=== PATIENT | female | born 1955 | race Hispanic/Latino ===

== ENCOUNTER 2019-03-21 14:28 | Emergency (ER) | payer OTHER ==
--- NOTE | 2019-03-21 16:41 | RAD REPORT ---
EXAM DESCRIPTION: Ribs Right - 03/21/2019 4:11 pm CLINICAL HISTORY: Right-sided rib pain following trauma COMPARISON: None. FINDINGS: No displaced rib fractures present and no nondisplaced rib fracture identifiable. No aggressive rib lesion. No underlying pneumothorax, effusion, infiltrate or pulmonary contusion. IMPRESSION: Negative right rib series.
--- NOTE | 2019-03-21 17:02 | ER ---
Nurse's Notes [facility] Name: Zonia Butcher Age: 63 yrs Sex: Female : 1955 Arrival Date: 03/21/2019 Time: 14:38 Bed 9 Private MD: Diagnosis: Contusion of Rib Presentation: 03/21 14:48 Presenting complaint: Right sided rib cage pain after leaning over metal bed rail 2 hb days ago. Transition of care: patient was not received from another setting of care. Onset of symptoms was March 19, 2019. Risk Assessment: Do you want to hurt yourself or someone else? Patient reports no desire to harm self or others. Initial Sepsis Screen: Does the patient meet any 2 criteria? No. Patient's initial sepsis screen is negative. Does the patient have a suspected source of infection? No. Patient's initial sepsis screen is negative. Care prior to arrival: None. 14:48 Method Of Arrival: Ambulatory hb 14:48 Acuity: SRINIVASAN 4 hb Historical: - Allergies: 14:49 No Known Allergies; hb - Immunization history:: Adult Immunizations unknown. - Social history:: Smoking status: unknown. - Ebola Screening: : No symptoms or risks identified at this time. Screenin:57 Abuse screen: Denies threats or abuse. Denies injuries from another. Nutritional ph screening: No deficits noted. Tuberculosis screening: No symptoms or risk factors identified. Fall Risk None identified. Assessment: 15:56 General: Appears in no apparent distress. comfortable, well groomed, Behavior is calm, ph cooperative, appropriate for age. Pain: Complains of pain in right lateral posterior chest and right lateral anterior chest. Neuro: Level of Consciousness is awake, alert, obeys commands, Oriented to person, place, time, situation. Cardiovascular: Capillary refill < 3 seconds in bilateral fingers Patient's skin is warm and dry. Respiratory: Reports pain with respiration Airway is patent Respiratory effort is even, unlabored, Respiratory pattern is regular, symmetrical, Denies shortness of breath. Derm: Skin is intact, is healthy with good turgor, Skin is pink, warm \T\ dry. 16:45 Reassessment: Patient appears in no apparent distress at this time. No changes from previously documented assessment. Patient and/or family updated on plan of care and expected duration. Pain level reassessed. Patient is alert, oriented x 3, equal unlabored respirations, skin warm/dry/pink. Vital Signs: 14:49 BP 158 / 79; Pulse 84; Resp 16; Temp 98.2; Pulse Ox 100% on R/A; Weight 108.86 kg; hb Height 5 ft. 4 in. (162.56 cm); Pain 9/10; 14:49 Body Mass Index 41.20 (108.86 kg, 162.56 cm) hb ED Course: 14:38 Patient arrived in ED. mr 14:49 Triage completed. hb 14:49 Arm band placed on. hb 15:11 Arturo Copeland PA is PHCP. [facility] 15:11 Jono Carnes MD is Attending Physician. caesar 15:56 Kanwal Garg, RN is Primary Nurse. ph 15:57 Patient has correct armband on for positive identification. Bed in low position. ph 15:57 No provider procedures requiring assistance completed. Patient did not have IV access ph during this emergency room visit. 16:06 Ribs Right XRAY In Process Unspecified. EDMS Administered Medications: No medications were administered Outcome: 17:01 Discharge ordered by . [facility] 17:09 Discharged to home ambulatory. hb 17:09 Condition: stable 17:09 Discharge instructions given to patient, Instructed on discharge instructions, follow up and referral plans. medication usage, Incentive spirometer Demonstrated understanding of instructions, follow-up care, medications, incentive spirometer Prescriptions given X 1. 17:10 Patient left the ED. hb Signatures: Dispatcher [employer] EDMS Arturo Copeland PA PA jmm Rivera, Mary mr Kanwal Garg, ILEANA RN Angela Araiza RN RN hb
--- NOTE | 2019-03-21 17:03 | EDPHYS ---
Physician Documentation [facility] Name: Zonia Butcher Age: 63 yrs Sex: Female : 1955 Arrival Date: 03/21/2019 Time: 14:38 Bed 9 Private MD: ED Physician Jono Carnes HPI: 03/21 15:31 This 63 yrs old Female presents to ER via Ambulatory with complaints of Rib jmm pain. 15:31 The patient or guardian reports chest pain that is located primarily in the anterior jmm chest wall. The pain does not radiate. The chest pain is described as sharp. Duration: The patient or guardian reports a single episode, that is still ongoing. 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 This occurred 2 days ago and the patient states pain has increased. . Historical: - Allergies: 14:49 No Known Allergies; hb - Immunization history:: Adult Immunizations unknown. - Social history:: Smoking status: unknown. - Ebola Screening: : No symptoms or risks identified at this time. ROS: 15:31 Constitutional: Negative for fever, chills, and weight loss, Respiratory: Negative for jmm shortness of breath, cough, wheezing, and pleuritic chest pain. 15:31 Cardiovascular: Positive for chest pain, with cough. 15:31 All other systems are negative. Exam: 15:31 Constitutional: This is a well developed, well nourished patient who is awake, alert, jmm and in no acute distress. Head/Face: atraumatic. Eyes: EOMI, no conjunctival erythema appreciated ENT: Moist Mucus Membranes Neck: Trachea midline, Supple 15:31 Cardiovascular: Regular rate and rhythm. No edema appreciated Respiratory: Normal respirations, no respiratory distress appreciated Abdomen/GI: Non distended, soft Back: Normal ROM Skin: General appearance color normal MS/ Extremity: Moves all extremities, no obvious deformities appreciated, no edema noted to the lower extremities Neuro: Awake and alert, normal gait Psych: Behavior is normal, Mood is normal, Patient is cooperative and pleasant 15:31 Chest/axilla: Inspection: normal, Palpation: tenderness, that is moderate, of the right lateral anterior chest, that totally reproduces the patient's complaints. Vital Signs: 14:49 BP 158 / 79; Pulse 84; Resp 16; Temp 98.2; Pulse Ox 100% on R/A; Weight 108.86 kg; hb Height 5 ft. 4 in. (162.56 cm); Pain 9/10; 14:49 Body Mass Index 41.20 (108.86 kg, 162.56 cm) hb MDM: 15:31 Patient medically screened. [facility] 16:57 Data reviewed: vital signs, nurses notes. Counseling: I had a detailed discussion with [facility] the patient and/or guardian regarding: the historical points, exam findings, and any diagnostic results supporting the discharge/admit diagnosis, the need for outpatient follow up, to return to the emergency department if symptoms worsen or persist or if there are any questions or concerns that arise at home. 16:57 ED course: Patient given IS along with education and return precautions. Patient [facility] understood and agrees with the plan of care. . 03/21 15:35 Order name: Ribs Right XRAY; Complete Time: 16:46 [facility] 03/21 16:19 Order name: INCENTIVE SPIROMETRY [facility] Administered Medications: No medications were administered Disposition: 03/22 08:18 Co-signature as Attending Physician, Jono Carnes MD I agree with the assessment and kdr plan of care. Disposition: 03/21/19 17:01 Discharged to Home. Impression: Contusion of Rib. - Condition is Stable. - Discharge Instructions: Rib Contusion, Incentive Spirometer. - Prescriptions for Ultracet 37.5- 325 mg Oral Tablet - take 1 tablet by ORAL route every 6 hours - for up to 5 days; do not exceed 8 tablets per day.; 12 tablet. - Medication Reconciliation Form, Thank You Letter, Antibiotic Education, Prescription Opioid Use form. - Follow up: Private Physician; When: 2 - 3 days; Reason: Recheck today's complaints, Continuance of care, Re-evaluation by your physician. Signatures: Dispatcher [employer] EDMS Jono Carnes MD MD kdr Mickail, Joel, PA PA [facility] Kanwal Garg RN RN Angela Veloz RN RN hb Corrections: (The following items were deleted from the chart) 03/21 17:10 17:01 03/21/2019 17:01 Discharged to Home. Impression: Contusion of Rib. Condition is hb Stable. Forms are Medication Reconciliation Form, Thank You Letter, Antibiotic Education, Prescription Opioid Use. Follow up: Private Physician; When: 2 - 3 days; Reason: Recheck today's complaints, Continuance of care, Re-evaluation by your physician. kenzie
[2019-03-21 17:32] VITALS: BP 158/79; TEMP 98.2; O2SAT 100
== END 2019-03-21 17:10 | disposition home or self-care (01) ==
LOC: ER 14:28
DX: S20.211A Contusion of right front wall of thorax, initial encounter (principal); W22.8XXA Striking against or struck by other objects, initial encounter; Y93.F9 Activity, other caregiving; Y92.9 Unspecified place or not applicable; Y99.8 Other external cause status
CPT/HCPCS: 99283

== ENCOUNTER 2020-12-04 05:35 | Day surgery (SDC) | payer OTHER, BC ==
[2020-11-30 17:05] LABS: Basophils % 0.6 % (0-1.3); Hematocrit 40.9 % (36.0-45.0); Lymphocytes % 20.7 % (15.3-44.8); MPV 9.4 fL (7.6-11.3); RBC Red Blood Cell Count 4.25 M/uL (3.86-4.86)
[2020-11-30 17:16] LABS: Potassium 4.5 mmol/L (3.5-5.1)
[2020-11-30 17:23] LABS: Protime INR 1.15
--- NOTE | 2020-11-30 17:27 | RAD REPORT ---
EXAM DESCRIPTION: Uzma Mancilla (2 Views)11/30/2020 5:10 pm CLINICAL HISTORY: Preop for shoulder surgery COMPARISON: 2019 FINDINGS: The lungs appear clear of acute infiltrate. The heart is borderline enlarged IMPRESSION: No acute abnormalities displayed
--- NOTE | 2020-12-01 12:16 | EKG ---
Test Date: 2020-11-30 Test Time: 15:45:28 Fuse Maker: ADONIS MEASUREMENT RESULTS: Intervals: Rate: 70 CO: 128 QRSD: 80 QT: 396 QTc: 427 [place]: P: -3 CO: 128 QRS: 24 T: 13 INTERPRETIVE STATEMENTS: Normal sinus rhythm Low voltage QRS Possible Inferior infarct, age undetermined Abnormal ECG Compared to ECG 03/31/2017 08:31:26 Low QRS voltage now present Myocardial infarct finding still present Electronically Signed On 12-01-20 12:13:29 CDT by Demetrius Garcia
--- NOTE | 2020-12-02 16:14 | EKG ---
Test Date: 2020-12-01 Test Time: 06:44:28 Enlisted Aircrew/Aerial Observer/Gunner: ADONIS MEASUREMENT RESULTS: Intervals: Rate: 81 IN: 250 QRSD: 102 QT: 386 QTc: 448 [place]: P: 94 IN: 250 QRS: 0 T: 68 INTERPRETIVE STATEMENTS: Sinus rhythm with 1st degree AV block Nonspecific ST and T wave abnormality Abnormal ECG Compared to ECG 11/30/2020 15:45:28 First degree AV block now present ST (T wave) deviation now present Myocardial infarct finding no longer present Electronically Signed On 12-02-20 16:07:35 CDT by Demetrius Garcia
[2020-12-04] MEDS ORDERED: NA CHLORIDE 0.9% 1,000 ML ONE ×2 (06:13→08:50)
[2020-12-04] MEDS ORDERED: CEFAZOLIN/SWI 2gm 2 GM/20 ML SYR ONE (06:14)
[2020-12-04] MEDS ORDERED: ROPLVACAINE HCL 40 ML ONE (06:55)
[2020-12-04] MEDS ORDERED: FENTANYL CITR 100 MCG/2 ML ONE (06:55)
[2020-12-04] MEDS ORDERED: MIDAZOLAM HCL 2 MG/2 ML INJ ONE (06:55)
[2020-12-04] MEDS ORDERED: dexAMETHasone 10 MG/ML VIAL ONE (06:55)
[2020-12-04] MEDS ORDERED: NS 0.9% VIAL 10 ML ONE (06:55)
[2020-12-04] MEDS ORDERED: LIDOCAINE 1% MPF 5 ML VIAL ONE (06:55)
[2020-12-04] MEDS ORDERED: EPINEPHRINE/PF 1 MG/ML AMP ONE (07:12)
[2020-12-04] MEDS ORDERED: propofoL 200 MG/20 ML VIAL IV ONE (07:40)
[2020-12-04] MEDS ORDERED: ROCURONIUM 50 MG/5 ML VIAL IV ONE ×2 (07:40→08:59)
[2020-12-04] MEDS ORDERED: LIDOCAINE 2% MPF 5 ML VIAL ONE (07:40)
[2020-12-04] MEDS ORDERED: EPHEDRINE SULF 50 MG/ML VIAL ONE (08:56)
[2020-12-04] MEDS ORDERED: BUPIVACAINE 0.5% PF 10 ML VIAL ONE (10:04)
[2020-12-04] MEDS ORDERED: GLYCOPYRROLATE 0.2 MG/ML SYR ONE (10:05)
[2020-12-04] MEDS ORDERED: NEOSTIGMINE 1 MG/ML -5 ML ONE (10:06)
--- NOTE | 2020-12-04 10:21 | P.BOP ---
Preoperative diagnosis: right shoulder rotator cuff tear, impingement syndrome, AC arthrosis Postoperative diagnosis: same, subscapularis tear Primary procedure: right shoulder arthroscopic rotator cuff repair Secondary procedure: right shoulder arthroscopic subscapularis debridement Other procedure(s): right shoulder subacromial decompression with distal clavicle excision Estimated blood loss: per anesthesia record Specimen: none Findings: see dictation Anesthesia: General Complications: None Implants: 1 - 5.5 mm Arthrex corkscrew, 2- 4.75 Arthrex swivelocks Fluids & blood products: per anesthesia record Transferred to: Recovery Room Condition: Good
--- NOTE | 2020-12-04 11:04 | RAD REPORT ---
EXAM DESCRIPTION: RAD - Shoulder 1 View - 12/04/2020 10:33 am CLINICAL HISTORY: Right shoulder surgery FINDINGS: Postsurgical changes involve the right shoulder. No fracture or dislocation seen.
[2020-12-04] MEDS ORDERED: ONDANSETRON 4 MG/2 ML VIAL ONE (11:16)
[2020-12-04] MEDS ORDERED: HYDROCODONE/APAP 7.5/325 MG TAB ONE (11:51)
[2020-12-04 13:54] VITALS: TEMP 97
[2020-12-04 13:55] VITALS: BP 102/43; O2SAT 96
--- NOTE | 2020-12-05 02:50 | OP ---
Date of Procedure: 12/04/2020 Surgeon: Musa Tee MD Preoperative Diagnoses: 1.Right shoulder rotator cuff tear. 2.Right shoulder bicipital tenosynovitis. 3.Right shoulder impingement syndrome. 4.Right shoulder acromioclavicular joint arthrosis. Postoperative Diagnoses: 1.Right shoulder rotator cuff tear. 2.Right shoulder biceps tendon auto-rupture. 3.Right shoulder subscapularis tear. 4.Right shoulder impingement syndrome. 5.Right shoulder acromioclavicular joint arthrosis. Procedure Performed: 1.Right shoulder arthroscopic rotator cuff repair. 2.Right shoulder arthroscopic subscapularis debridement. 3.Right shoulder arthroscopic subacromial decompression. 4.Right shoulder arthroscopic distal clavicle excision. Anesthesia: General endotracheal. Fluids: Per Anesthesia record. Estimated Blood Loss: 10 cc. Complications: None. Implants: 1.One 5.5 mm Arthrex corkscrew. 2.Two 4.75 mm Arthrex SwiveLock. Indication For Procedure: Zonia is a 65-year-old female, who presented to my clinic with signs and symptoms and MRI findings consistent with right shoulder rotator cuff tear, bicipital tenosynovitis as well as impingement syndrome and AC joint arthrosis. The patient failed conservative treatment me asures and reported pain that interfered with her activities of daily living and I discussed with the patient at length risks and benefits associated with operative and nonoperative treatment. She expr essed understanding and elected to proceed with operative treatment. Description Of Procedure: After informed consent was obtained, the patient was identified in the pre operative holding area. The right upper extremity was marked. The patient was then brought back to the PACU where the patient underwent a right-sided interscalene block performed by Anesthesia. She w as then taken to the operating room, transferred to the operating table in the supine fashion and gasper luke under general endotracheal anesthesia. She was then placed in the beach chair position with her extremities well padded. The right upper extremity was then examined. The patient had full range of motion and no instability noted. The right upper extremity was then prepped and draped in usual abdiaziz rile fashion. A time-out was initiated. The correct patient and procedure confirmed and identified. The patient did receive her preoperative prophylactic antibiotics. A spinal needle was introduced to the glenohumeral joint using the posterior portal position and the shoulder was injected with 30 c c of normal saline to distend the capsule. A stab incision was made posteriorly and a posterior port al was created. The arthroscope was brought in via the posterior portal position. A diagnostic arth roscopy was performed. Under direct visualization, anterior portal and anterior cannula were placed, and a diagnostic arthroscopy was performed. The patient was noted to have a less than 10% tear of t he superior aspect of the subscapularis, which was debrided using an arthroscopic shaver. The patien t was also noted to have an auto-rupture of her biceps tendon. The biceps tendon anchor was then tabatha rided using arthroscopic shaver. There were no significant instability noted to the anterior and pos terior labrum stable to probe. There were no loose bodies within the axillary pouch. There was no s ignificant chondromalacia noted of the humeral head and glenoid surface. The arthroscope was then br ought at the supraspinatus insertion. The patient was noted to have a full-thickness tear of her sup raspinatus. Over the anterior aspect of it, a lateral portal was created using a spinal needle and a stab incision. A trocar was brought into the joint consistent with a full-thickness tear. The grea ter tuberosity was then debrided using an arthroscopic shaver to create a bleeding bony bed and the u ndersurface of rotator cuff tear was then debrided using the arthroscopic shaver. The arthroscope wa s then brought in the subacromial space and subacromial bursectomy was performed. A full-thickness t ear of the supraspinatus was identified. Belkys cannula was then placed. The tear was then reducibl e to the greater tuberosity using the pituitary grasper with no tension. Again, the bursal side of t he rotator cuff tear was then debrided using arthroscopic shaver. A spinal needle was then introduce d just lateral to the acromion and a 5.5 mm anchor was placed just lateral to the articular service f or medial row fixation. It was double loaded. The sutures were passed through the rotator cuff tear in an anterior to posterior fashion and tied in a horizontal mattress fashion. The suture was then placed in a crisscross fashion and 2 lateral row 4.75 mm Arthrex SwiveLock anchors were placed for in creasing the surface area of the repair onto the greater tuberosity. There was overall good reductio n of the rotator cuff tear with overall good alignment. The undersurface of the acromion was then de brided using an arthroscopic radiofrequency ablator and an arthroscopic divya was then used to perform an acromioplasty given some the undersurface spurring of the acromion. The distal clavicle was then identified and a distal clavicle excision was then performed using a radiofrequency ablator and an a rthroscopic divya and there was no abutment of the distal clavicle onto the acromion. The arthroscopi c instruments were then removed without complication and the subcutaneous tissue was approximated usi ng a 2-0 Vicryl and skin was approximated using a 3-0 Monocryl. Sterile dressings were applied. The patient was placed in a shoulder immobilizer, awakened, and transferred to PACU in stable condition. Postoperative Plan: She will be nonweightbearing on her right upper extremity. She will follow the medium rotator cuff repair protocol at 4 weeks postop with Physical Therapy. She will follow up next week in clinic for wound check. CV/MODL Voice ID: [id number] Report ID: [id number]
== END 2020-12-04 12:30 | disposition home or self-care (01) ==
LOC: OR 05:35
PROVIDERS: ATTEND Orthopaedic Surgery Sports Medicine
PROC: 0RNJ4ZZ Release Right Shoulder Joint, Percutaneous Endoscopic Approach (ICD-10-PCS; 2020-12-04)
PROC: 0LQ14ZZ Repair Right Shoulder Tendon, Percutaneous Endoscopic Approach (ICD-10-PCS; 2020-12-04)
PROC: 0RHJ44Z Insertion of Internal Fixation Device into Right Shoulder Joint, Percutaneous Endoscopic Approach (ICD-10-PCS; 2020-12-04)
PROC: 0PB94ZZ Excision of Right Clavicle, Percutaneous Endoscopic Approach (ICD-10-PCS; 2020-12-04)
PROC: 0RBJ4ZZ Excision of Right Shoulder Joint, Percutaneous Endoscopic Approach (ICD-10-PCS; principal; 2020-12-04 07:30)
DX: M75.121 Complete rotator cuff tear or rupture of right shoulder, not specified as traumatic (principal); M65.811 Other synovitis and tenosynovitis, right shoulder; M75.41 Impingement syndrome of right shoulder; M19.011 Primary osteoarthritis, right shoulder; E11.9 Type 2 diabetes mellitus without complications; E66.01 Morbid (severe) obesity due to excess calories; K21.9 Gastro-esophageal reflux disease without esophagitis; Z85.038 Personal history of other malignant neoplasm of large intestine; Z20.822 Contact with and (suspected) exposure to COVID-19
CPT/HCPCS: 93005 ×2; 85025; 80048; 36415; 85610; 82947 ×2; 85730; 71046; 73020; 29823; 29826; 29827; 29824; U0002; J2704; J0171; J2250; J3010; J1100; J2795; J2710; J0690; J7030 ×2; J2405

== ENCOUNTER 2021-02-19 05:46 | Day surgery (SDC) | payer OTHER, BC ==
[2021-02-12 10:15] LABS: Protime INR 1.05
[2021-02-12 10:20] LABS: BUN Blood Urea Nitrogen 23 mg/dL (7-18); Bicarbonate 26 mmol/L (21-32); Glucose Level 134 mg/dL (74-106); Potassium 4.6 mmol/L (3.5-5.1); Sodium Level 138 mmol/L (136-145)
[2021-02-12 10:23] LABS: C-Reactive Protein < 2.90 mg/L (<3.00)
[2021-02-12 10:37] LABS: Absolute Lymphocytes (CBC) 1.7 K/uL (0.7-4.9); Basophils % 0.4 % (0-1.3); Hematocrit 38.6 % (36.0-45.0); Lymphocytes % 18.1 % (15.3-44.8); MPV 9.7 fL (7.6-11.3); RBC Red Blood Cell Count 4.09 M/uL (3.86-4.86)
[2021-02-19] MEDS ORDERED: NA CHLORIDE 0.9% 1,000 ML ONE ×2 (06:12→09:11)
[2021-02-19] MEDS ORDERED: CEFAZOLIN/SWI 2gm 2 GM/20 ML SYR ONE (06:12)
[2021-02-19] MEDS ORDERED: ROPLVACAINE HCL 40 ML ONE (06:56)
[2021-02-19] MEDS ORDERED: EPINEPHRINE/PF 1 MG/ML AMP ONE (07:24)
[2021-02-19] MEDS ORDERED: LIDOCAINE 1% MPF 30 ML VIAL ONE (07:49)
[2021-02-19] MEDS ORDERED: dexAMETHasone 10 MG/ML VIAL ONE (07:49)
[2021-02-19] MEDS ORDERED: propofoL 200 MG/20 ML VIAL IV ONE (07:49)
[2021-02-19] MEDS ORDERED: ROCURONIUM 50 MG/5 ML VIAL IV ONE ×2 (07:49→09:54)
[2021-02-19] MEDS ORDERED: LIDOCAINE 2% MPF 5 ML VIAL ONE (07:49)
[2021-02-19] MEDS ORDERED: MIDAZOLAM HCL 2 MG/2 ML INJ ONE (07:49)
[2021-02-19] MEDS ORDERED: FENTANYL CITR 100 MCG/2 ML ONE ×2 (07:49→11:07)
[2021-02-19] MEDS ORDERED: NS 0.9% VIAL 20 ML ONE (07:49)
--- NOTE | 2021-02-19 10:35 | RAD REPORT ---
EXAM DESCRIPTION: RAD - Shoulder 1 View - 02/19/2021 10:13 am CLINICAL HISTORY: R/O FB LOOSE SCREW FROM RECENT SURG , DONE IN OR COMPARISON: Shoulder 1 View dated 12/04/2020 FINDINGS: No radiopaque foreign body identified in the region of the right shoulder. IMPRESSION: No radiopaque foreign body in the region of the right shoulder.
[2021-02-19] MEDS ORDERED: KETOROLAC 30 MG/ML INJ ONE (11:07)
[2021-02-19] MEDS ORDERED: ONDANSETRON 4 MG/2 ML VIAL ONE (11:09)
[2021-02-19] MEDS ORDERED: GLYCOPYRROLATE 0.2 MG/ML SYR ONE (11:25)
[2021-02-19] MEDS ORDERED: NEOSTIGMINE 1 MG/ML -5 ML ONE (11:25)
--- NOTE | 2021-02-19 11:30 | P.BOP ---
Preoperative diagnosis: right shoulder loose body, right shoulder recurrent rotator cuff tear Postoperative diagnosis: right shoulder arthroscopic rotator cuff repair Primary procedure: right shoulder arthroscopic loose body removal Culinary Instructor: NONE,NONE Specimen: none Findings: see dictation Anesthesia: General Complications: None Implants: 1- 5.5 mm corkscrew, 1- 4.75 mm swivelock Fluids & blood products: per anesthesia record Transferred to: Recovery Room Condition: Good
--- NOTE | 2021-02-19 12:07 | RAD REPORT ---
EXAM DESCRIPTION: RAD - Shoulder 1 View - 02/19/2021 11:51 am CLINICAL HISTORY: S/P RCR, ARTHROSCOPIC REMOVAL OF LOOSE BODY COMPARISON: Shoulder 1 View dated 02/19/2021[place]oulder 1 View dated 02/19/2021; Shoulder Rt Wo Cont dated 02/04/2021 FINDINGS: No right shoulder or dislocation. A small right pleural effusion with underline linear opa cities, likely atelectasis or scarring. No radiopaque foreign body. IMPRESSION: No right shoulder fracture identified. No radiopaque foreign body.
[2021-02-19] MEDS ORDERED: INSULIN -REGULAR HUMAN 50 UNIT/0.5 ML ML ONE (12:25)
[2021-02-19 14:03] VITALS: BP 104/53; TEMP 97.8; O2SAT 98
--- NOTE | 2021-02-19 23:24 | OP ---
Date of Procedure: 02/19/2021 Surgeon: Musa Tee MD Preoperative Diagnoses: 1.Right shoulder loose body. 2.Right shoulder recurrent rotator cuff tear. Postoperative Diagnoses: 1.Right shoulder loose body. 2.Right shoulder recurrent rotator cuff tear. Procedures Performed: 1.Right shoulder arthroscopic rotator cuff repair. 2.Right shoulder arthroscopic removal of loose body. Anesthesia: General endotracheal. Fluids: Per Anesthesia record. Estimated Blood Loss: 5 cc. Complications: None. Implants: 1.One 5.5 mm Arthrex corkscrew. 2.One 4.75 mm Arthrex SwiveLock. Indication For Procedure: Ms. Butcher is a 65-year-old female, who underwent right shoulder rotator cu ff repair approximately 2 months ago. The patient was doing well postoperatively and then had an inc rease in pain. An MRI was ordered at that time, which demonstrated she had 1 of her SwiveLock had ba cked out and was in the subacromial space. The patient was reporting pain with physical therapy as w ell as sleeping. Given her pain and a loose screw, I discussed with the patient arthroscopic removal of loose body as well as possible rotator cuff repair. The patient expressed understanding given he r continued pain and elected to proceed with operative treatment. Description Of Procedure: After informed consent was obtained, the patient was identified in the pre operative holding area. The right lower extremity was marked. The patient was then brought to the P ACU where she underwent a right upper extremity interscalene block performed by Anesthesia. She was then taken back to the operating room, transferred to the operating table in supine fashion, and plac ed under general endotracheal anesthesia. She was placed in the beach chair position with her extrem ities well padded throughout. Right upper extremity was then prepped and draped in usual sterile fas hion. A time-out was initiated. The correct patient and procedure were confirmed and identified. T he patient did receive her preoperative prophylactic antibiotics. A spinal needle was introduced int o the glenohumeral joint via the posterior portal position and the shoulder was injected with 30 cc o f normal saline to distend the capsule. A posterior portal was then created and arthroscope was brou ght in via the posterior portal position into the glenohumeral joint. A diagnostic arthroscopy was p erformed. The patient was noted not to have any loose bodies within the rotator cuff or within the i ntra-articular space. The subscapularis was found to be intact. The anterior and posterior labrum w ere found to be stable to probe as well as intact. Superior labrum was found to be intact. There we re no loose bodies within the axillary pouch. The rotator cuff was then examined. The patient was n oted to have some healing of the anterior aspect of the rotator cuff tear from the prior surgery as w ell as with some mild elevation of the posterior supraspinatus, which was noted on her postoperative MRI, which demonstrated the posterior SwiveLock to be loose within the subacromial space. The arthro scope was then brought into the subacromial space and a subacromial bursectomy was performed. There was overall good healing of anterior rotator cuff repair. The patient was noted to have some loose s utures at the level of the posterior SwiveLock. The loose sutures were then cut and removed using a side cutter and grasper. The rotator cuff tear posteriorly was then debrided using an arthroscopic s haver as it did appear to be elevated off the greater tuberosity. The loose sutures that were remove d did bring out of it, however, the loose SwiveLock was not identified. The arthroscope was then bro ught in both posteriorly and anteriorly within the subdeltoid recesses and there was no sign of the S wiveLock. The arthroscope was then brought back into articulate to search for the SwiveLock, however , was not found into articulate either. At that point, fluoroscopy was brought in to see if a shadow of the SwiveLock could be identified. Fluoroscopy was used. SwiveLock could not be seen on the flu oroscopic images. A plain film was then performed intraoperatively and again no SwiveLock could be i dentified. The arthroscope was then brought into the subacromial space and the rotator cuff was then prepped for repair posteriorly after the devitalized tissue had been debrided. After further debrid ement of the devitalized tissue was noted, the loose SwiveLock was identified and it was brought out and removed using a grasper, and x-rays were taken at that time using the arthroscope. A 5.5 mm corkscrew was then placed just lateral to the articular surface and the sutures were passed in a horizontal mattress fashion. The medial row fixation was then performed. A suture tape was the n used to pass a second inverted horizontal mattress suture and first SpeedFix fixation and medial ro w as well as a SpeedFix were then affixed to the greater tuberosity using a 4.75 mm SwiveLock. It wa s noted while placing the corkscrew and the SwiveLock, the patient did have relatively soft bone, how ever, after the suture anchors were placed, tension was placed, and the suture anchor remained in pos ition with good fixation. The remaining sutures were then cut and portals were then irrigated thorou ghly with normal saline. After this, arthroscopic instruments were removed. Subcutaneous tissue was approximated using a 2-0 Vicryl. Portals were approximated using 3-0 Monocryl. Sterile dressings w ere applied. The patient was placed in a shoulder immobilizer, awakened, and transferred to PACU in stable condition. Postoperative Plan: She will be nonweightbearing of her right upper extremity, remain in her shoulde r immobilizer for 6 weeks. We will follow the medium rotator cuff repair protocol at 6 weeks postop. GARRICK/CORTEZ Voice ID: [id number] Report ID: [id number]
== END 2021-02-19 13:55 | disposition home or self-care (01) ==
LOC: OR 05:46
PROVIDERS: ATTEND Orthopaedic Surgery Sports Medicine
PROC: 0RHJ44Z Insertion of Internal Fixation Device into Right Shoulder Joint, Percutaneous Endoscopic Approach (ICD-10-PCS; 2021-02-19)
PROC: 0LQ14ZZ Repair Right Shoulder Tendon, Percutaneous Endoscopic Approach (ICD-10-PCS; principal; 2021-02-19 07:30)
DX: S46.011S Strain of muscle(s) and tendon(s) of the rotator cuff of right shoulder, sequela (principal); M25.511 Pain in right shoulder; M96.89 Other intraoperative and postprocedural complications and disorders of the musculoskeletal system; M24.011 Loose body in right shoulder
CPT/HCPCS: 85025; 80048; 36415; 85610; 82947 ×3; 85730; 85652; 86140; 73020 ×2; 29827; J2704; J0171; J2250; J3010 ×2; J1100; J2795; J2710; J0690; J7030 ×2; J2405

== ENCOUNTER 2024-09-21 02:19 | Inpatient (IN) | payer OTHER, BC ==
[2024-09-21 03:40] LABS: Specific Gravity 1.017 (1.005-1.030); Sqamous Epithelial None Seen /HPF (None Seen); Urine Bacteria None Seen /HPF (<20); Urine Bilirubin NEGATIVE (Negative); Urine Blood Trace (Negative); Urine Clarity Clear (Clear); Urine Color Colorless (Yellow); Urine Crystals Unidentified Few /HPF (None Seen); Urine Culture Reflex Order NOT NEEDED; Urine Glucose 4+ (Over) (Negative); Urine Ketones NEGATIVE (Negative); Urine Micro Reflex YN NO BILL MICROSCOPIC; Urine Mucus Slight /HPF (None Seen); Urine Nitrite NEGATIVE (Negative); Urine Protein TRACE (Negative); Urine RBC <5 /HPF (None Seen); Urine Urobilinogen Normal (Normal); Urine WBC <5 /HPF (<5); Urine pH 6.5 (5.0-7.0)
[2024-09-21 03:52] LABS: Absolute Lymphocytes (CBC) 0.8 K/uL (0.7-4.9); Absolute Monocytes 0.7 K/uL (0.1-1.3); Absolute Neutrophil 9.3 K/uL (1.8-8.0); Basophils % 0.4 % (0-1.3); Hematocrit 34.5 % (36.0-45.0); Hemoglobin 11.3 g/dL (12.0-15.0); MCH 32.3 pg (27.0-35.0); MCHC 32.9 g/dL (32.0-36.0); MCV 98.3 fL (80-100); MPV 9.6 fL (7.6-11.3); Monocytes % 6.2 % (3.3-12.3); Neutrophils % 86.4 % (41.7-73.7); Platelets 246 thou/uL (152-406); RBC Red Blood Cell Count 3.51 M/uL (3.86-4.86); Red Cell Distribution Width 12.9 % (12.1-15.2)
[2024-09-21 04:07] LABS: ALT/SGPT 21 U/L (13-56); AST/SGOT 12 U/L (15-37); Albumin 3.1 g/dL (3.4-5.0); Albumin/Globulin Ratio 0.7 (1.1-1.8); Alkaline Phosphatase 169 U/L (45-117); BUN Blood Urea Nitrogen 30 mg/dL (7-18); Bicarbonate 22 mEq/L (21-32); Bilirubin Total 0.3 mg/dL (0.2-1.0); Globulin 4.4 g/dL (2.3-3.5); Glomerular Filtration Rate 46 ml/min (=/>90); Protein, Total 7.5 g/dL (6.4-8.2); Sodium Level 131 mEq/L (136-145); Troponin High Sensitivity 51.5 pg/mL (<58.9)
[2024-09-21 04:08] LABS: Bilirubin Direct < 0.2 mg/dL (0-0.2); Bilirubin Indirect, Calculated 0.1 mg/dL (0.2-0.8)
[2024-09-21 04:10] LABS: Glucose Level 537 mg/dL (74-106)
[2024-09-21 04:59] LABS: Blood Morphology Comment NOT SEEN (NOT SEEN); Platelet Estimate ADEQ; White Blood Cell Scan OK (OK)
[2024-09-21] MEDS ORDERED: NA CHLORIDE 0.9% 1,000 ML ONE (05:04)
[2024-09-21] MEDS ORDERED: INSULIN REGULAR (HUMAN) 100 UNIT/ML ONE (05:49)
--- NOTE | 2024-09-21 06:36 | RAD REPORT ---
EXAM: XR Chest, 1 View CLINICAL HISTORY: The patient is 68 years old and is Female; CHEST PAIN TECHNIQUE: Frontal view of the chest. COMPARISON: No relevant prior studies available. FINDINGS: Lungs: Unremarkable. No consolidation. Pleural space: Unremarkable. No pneumothorax. Heart: Unremarkable. Mediastinum: Unremarkable. Normal mediastinal contour. Bones/joints: No acute findings. IMPRESSION: No acute findings in the chest. Electronically signed by: Zeeshan Ramirez MD 09/21/2024 05:57 AM [facility] 8 Due to temporary technical issues with the PACS/Qomuty reporting system, reports are being anatoliy d by the in-house radiologist without review as a courtesy to ensure prompt reporting the interpreting radiologist is fully responsible for the content of the report. Transcribed Date/Time: 09/21/2024 6:35 AM
--- NOTE | 2024-09-21 07:04 | EDPHYS ---
Physician Documentation [facility] Name: Zonia Butcher Age: 68 yrs Sex: Female : 1955 Arrival Date: 09/21/2024 Time: 02:19 Bed 17 Private MD: ED Physician Cy Roldan HPI: 09/21 05:33 This 68 yrs old Female presents to ER via EMS with complaints of Chest Pain. rt 05:37 Patient presents to the ED with substernal chest pain starting about 9 PM. Was rt pressure-like in nature. Patient received nitro, aspirin by EMS which resolved her symptoms. The patient reports urinary frequency without dysuria. Denies other acute complaints at this time, symptoms are moderate in severity, no other aggravating or alleviating factors.. Historical: - Allergies: 02:28 Iodine; al5 02:28 SHELLFISH; al5 - PMHx: 02:28 Diabetes mellitus; al5 - Immunization history:: Adult Immunizations up to date. - Infectious Disease History:: Denies. - Social history:: Smoking status: Patient denies any tobacco usage or history of. - Family history:: not pertinent. ROS: 05:37 Constitutional: Negative for fever, chills, and weight loss, Respiratory: Negative for rt shortness of breath, cough, wheezing, and pleuritic chest pain, Abdomen/GI: Negative for abdominal pain, nausea, vomiting, diarrhea, and constipation, MS/Extremity: Negative for injury and deformity, Skin: Negative for injury, rash, and discoloration, 05:37 Cardiovascular: Positive for chest pain, Negative for edema, 05:37 : Positive for urinary frequency, Negative for burning with urination, Exam: 05:37 Constitutional: This is a well developed, well nourished patient who is awake, alert, rt and in no acute distress. Head/Face: Normocephalic, atraumatic. Chest/axilla: Normal chest wall appearance and motion. Nontender with no deformity. No lesions are appreciated. Cardiovascular: Regular rate and rhythm with a normal S1 and S2. No gallops, murmurs, or rubs. Normal PMI, no JVD. No pulse deficits. Respiratory: Lungs have equal breath sounds bilaterally, clear to auscultation and percussion. No rales, rhonchi or wheezes noted. No increased work of breathing, no retractions or nasal flaring. Abdomen/GI: Soft, non-tender, with normal bowel sounds. No distension or tympany. No guarding or rebound. No evidence of tenderness throughout. Skin: Warm, dry with normal turgor. Normal color with no rashes, no lesions, and no evidence of cellulitis. MS/ Extremity: Pulses equal, no cyanosis. Neurovascular intact. Full, normal range of motion. Neuro: Awake and alert, GCS 15, oriented to person, place, time, and situation. Cranial nerves II-XII grossly intact. Motor strength 5/5 in all extremities. Sensory grossly intact. Cerebellar exam normal. Normal gait. 05:37 ECG was reviewed by the Attending Physician. Vital Signs: 02:25 BP 154 / 57; Pulse 73; Resp 16; Temp 97.4; Pulse Ox 98% on R/A; Weight 108.86 kg; al5 Height 5 ft. 4 in. ; Pain 2/10; 03:00 BP 146 / 65; Pulse 72; Resp 17; Pulse Ox 96% on R/A; al5 03:30 BP 141 / 60; Pulse 72; Resp 18; Pulse Ox 95% on R/A; al5 04:00 BP 154 / 66; Pulse 70; Resp 17; Pulse Ox 98% on R/A; al5 04:30 BP 154 / 66; Pulse 69; Resp 18; Pulse Ox 96% on R/A; al5 05:00 BP 158 / 58; Pulse 68; Resp 17; Pulse Ox 97% on R/A; al5 07:50 BP 150 / 62; Pulse 61; Resp 17; Pulse Ox 97% ; ll1 09:06 BP 140 / 72; Pulse 65; Resp 17; Pulse Ox 97% on R/A; ll1 02:25 Body Mass Index 41.20 (108.86 kg, 162.56 cm) al5 02:25 Pain Scale: Adult al5 MDM: 02:43 Medical Screening Exam initiated rt 07:10 Differential diagnosis: Hyperglycemia, ACS, coronary artery disease. HEART Score: rt History: Moderately Suspicious (1), ECG: Normal (0), Age: > or = 65 years (2), Risk Factors: 1 or 2 risk factors (1), Troponin: < or = 1 x Normal Limit (0), Total Score = 4. The patient was not given aspirin in the Emergency Department. Patient reports taking aspirin within the past 24 hours. Data reviewed: vital signs, nurses notes, lab test result(s), EKG, radiologic studies. Consideration of Admission/Observation Patient was admitted/placed on observation. I considered the following discharge prescriptions or medication management in the emergency department Medications were administered in the Emergency Department. See MAR. Independent interpretation of the following test(s) in the Emergency Department X-Ray: My interpretation is No infiltrate seen on interpretation of x-ray images. Test considered but Not performed: CT: Low suspicion for pulmonary embolus, CT angiogram not indicated. Care significantly affected by the following chronic conditions: Diabetes. Counseling: I had a detailed discussion with the patient and/or guardian regarding the historical points, exam findings, and any diagnostic results supporting the discharge/admit diagnosis, lab results, radiology results, the need for further work-up and treatment in the hospital. Response to treatment: the patient's symptoms have markedly improved after treatment. 09/21 02:56 Order name: Basic Metabolic Panel; Complete Time: 04:11 rt 09/21 02:56 Order name: CBC with Diff; Complete Time: 05:00 rt 09/21 02:56 Order name: LFT's; Complete Time: 04:11 rt 09/21 02:56 Order name: Troponin HS; Complete Time: 04:11 rt 09/21 02:56 Order name: UAM; Complete Time: 04:11 rt 09/21 04:59 Order name: CBC Smear Scan; Complete Time: 05:00 EDMS 09/21 07:37 Order name: Glucose, Ancillary Testing EDMS 09/21 02:56 Order name: XRAY Chest (1 view); Complete Time: 06:59 rt 09/21 02:56 Order name: EKG; Complete Time: 02:57 rt 09/21 02:56 Order name: Cardiac monitoring; Complete Time: 03:03 rt 09/21 02:56 Order name: EKG - Nurse/Tech; Complete Time: 03:03 rt 09/21 02:56 Order name: IV Saline Lock; Complete Time: 03:03 rt 09/21 02:56 Order name: Labs collected and sent; Complete Time: 03:03 rt 09/21 02:56 Order name: O2 Per Protocol; Complete Time: 03:03 rt 09/21 02:56 Order name: O2 Sat Monitoring; Complete Time: 03:03 rt EC:37 Rate is 72 beats/min. Rhythm is regular, Normal Sinus Rhythm with PACs. QRS [place] is rt Normal. [place] interval is normal. QRS interval is normal. QT interval is normal. No Q waves. T waves are Normal. No ST changes noted. Interpreted by me. Administered Medications: 05:08 Drug: NS 0.9% IV 1000 ml IV at 1 bolus Per protocol; to be given as a bolus over 60 al5 minutes Route: IV; Rate: 1 bolus; Site: left hand; 07:51 Follow up: Response: No adverse reaction; IV Status: Completed infusion; IV Intake: ll1 1000ml 05:54 Drug: Insulin Regular Human IVP 10 units IVP once {Co-Signature: dd2 (LILIANA WOOD RN).} Route: IVP; Site: left hand; 07:51 Follow up: Response: No adverse reaction; Blood sugar is lowered ll1 Disposition Summary: 09/21/24 07:04 Hospitalization Ordered Notes: Hospitalization Status: Observation rt Provider: Daryl Tavares rt Location: Telemetry/MedSurg (observation) rt Condition: Stable rt Problem: new rt Symptoms: have improved rt Bed/Room Type: Standard rt Room Assignment: 417(09/21/24 08:04) eb Diagnosis - Chest pain, unspecified rt - Hyperglycemia, unspecified rt Forms: - Medication Reconciliation Form rt - SBAR form rt - Leadership Thank You Letter rt Signatures: Dispatcher [employer] EDMercy Bautista eb Cy Roldan MD MD rt Lissett Ogden RN RN al5 Lewis, Lynsay RN ll1 LILIANA WOOD RN dd2 Corrections: (The following items were deleted from the chart) 02:28 02:28 Allergies: No Known Allergies; al5 al5 02:57 02:56 BASIC METABOLIC PANEL+C.LAB.BRZ ordered. EDMS EDMS 02:57 02:56 CBC+H.LAB.BRZ ordered. EDMS EDMS 02:57 02:56 HEPATIC FUNCTION+C.LAB.BRZ ordered. EDMS EDMS 02:57 02:56 Troponin High Sensitivity+C.LAB.BRZ ordered. EDMS EDMS 02:57 02:56 Urinalysis W/Microscopic+U.LAB.BRZ ordered. EDMS EDMS 08:04 07:04 rt eb
--- NOTE | 2024-09-21 07:04 | ER ---
Nurse's Notes [facility] Name: Zonia Butcher Age: 68 yrs Sex: Female : 1955 Arrival Date: 09/21/2024 Time: 02:19 Bed 17 Private MD: Diagnosis: Chest pain, unspecified;Hyperglycemia, unspecified Presentation: 09/21 02:25 Chief complaint: Patient states: c/o chest pain/pressure starting at 2100 rating 8/10. al5 324 ASA and 0.4 nitro given en route and pain decreased to 2/10. patient also c/o neck pain. patient received cortisone shot in R knee today. Coronavirus screen: At this time, the client does not indicate any symptoms associated with coronavirus-19. Ebola Screen: No symptoms or risks identified at this time. Initial Sepsis Screen: Does the patient meet any 2 criteria? No. Patient's initial sepsis screen is negative. Does the patient have a suspected source of infection? No. Patient's initial sepsis screen is negative. Risk Assessment: Do you want to hurt yourself or someone else? Patient reports no desire to harm self or others. Onset of symptoms was September 20, 2024. 02:25 Method Of Arrival: EMS: [facility] al5 02:25 Acuity: SRINIVASAN 2 al5 02:25 Care prior to arrival: Medication(s) given: Normal saline infusion, 150 mL IV al5 initiated. 20 GA, in the left hand, Glucose check: 587. Triage Assessment: 02:28 General: Appears in no apparent distress. comfortable, Behavior is calm, cooperative. al5 Pain: Complains of pain in chest Pain currently is 2 out of 10 on a pain scale. at worst was 8 out of 10 on a pain scale. Quality of pain is described as pressure. EENT: No signs and/or symptoms were reported regarding the EENT system. Neuro: Level of Consciousness is awake, alert, obeys commands, Oriented to person, place, time, situation. Cardiovascular: Capillary refill < 3 seconds Patient's skin is warm and dry. Respiratory: Airway is patent Respiratory effort is even, unlabored, Respiratory pattern is regular, symmetrical. GI: No signs and/or symptoms were reported involving the gastrointestinal system. : No signs and/or symptoms were reported regarding the genitourinary system. Derm: Skin is intact, is healthy with good turgor, Skin is pink, warm \T\ dry. normal. Musculoskeletal: Reports pain in neck and back. Historical: - Allergies: 02:28 Iodine; al5 02:28 SHELLFISH; al5 - PMHx: 02:28 Diabetes mellitus; al5 - Immunization history:: Adult Immunizations up to date. - Infectious Disease History:: Denies. - Social history:: Smoking status: Patient denies any tobacco usage or history of. - Family history:: not pertinent. Screenin:30 [facility] ED Fall Risk Assessment (Adult) History of falling in the last 3 months, al5 including since admission No falls in past 3 months (0 pts) Confusion or Disorientation No (0 pts) Intoxicated or Sedated No (0 pts) Impaired Gait Yes (1 pt) Mobility Assist Device Used No (0 pt) Altered Elimination No (0 pt) Score/Fall Risk Level 0 - 2 = Low Risk Oriented to surroundings, Maintained a safe environment, Hourly rounding (assess needs \T\ fall precautionary measures) done. Abuse screen: Denies threats or abuse. Denies injuries from another. Nutritional screening: No deficits noted. Tuberculosis screening: No symptoms or risk factors identified. Assessment: 02:29 Reassessment: see triage assessment. al5 02:31 Pain: Pain does not radiate. Pain began 4 hours ago. al5 03:36 Reassessment: Patient appears in no apparent distress at this time. No changes from al5 previously documented assessment. Patient and/or family updated on plan of care and expected duration. Pain level reassessed. Patient is alert, oriented x 3, equal unlabored respirations, skin warm/dry/pink. 05:01 Reassessment: Patient appears in no apparent distress at this time. No changes from al5 previously documented assessment. Patient and/or family updated on plan of care and expected duration. Pain level reassessed. Patient is alert, oriented x 3, equal unlabored respirations, skin warm/dry/pink. 07:00 Reassessment: Patient and/or family updated on plan of care and expected duration. Pain ll1 level reassessed. Report received from police shift commander RN. Vital Signs: 02:25 BP 154 / 57; Pulse 73; Resp 16; Temp 97.4; Pulse Ox 98% on R/A; Weight 108.86 kg; al5 Height 5 ft. 4 in. ; Pain 2/10; 03:00 BP 146 / 65; Pulse 72; Resp 17; Pulse Ox 96% on R/A; al5 03:30 BP 141 / 60; Pulse 72; Resp 18; Pulse Ox 95% on R/A; al5 04:00 BP 154 / 66; Pulse 70; Resp 17; Pulse Ox 98% on R/A; al5 04:30 BP 154 / 66; Pulse 69; Resp 18; Pulse Ox 96% on R/A; al5 05:00 BP 158 / 58; Pulse 68; Resp 17; Pulse Ox 97% on R/A; al5 07:50 BP 150 / 62; Pulse 61; Resp 17; Pulse Ox 97% ; ll1 09:06 BP 140 / 72; Pulse 65; Resp 17; Pulse Ox 97% on R/A; ll1 02:25 Body Mass Index 41.20 (108.86 kg, 162.56 cm) al5 02:25 Pain Scale: Adult al5 ED Course: 02:25 Patient arrived in ED. al5 02:28 Triage completed. al5 02:30 Arm band placed on right wrist. Patient placed in the treatment room, on a stretcher, al5 on classroom monitor, on pulse oximetry. 02:31 Patient has correct armband on for positive identification. Placed in gown. Bed in low al5 position. Call light in reach. Side rails up X2. Provided Education on: plan of care. Client placed on continuous cardiac and pulse oximetry monitoring. NIBP monitoring applied. ekg monitor on. 02:31 No provider procedures requiring assistance completed. Maintain EMS IV. Dressing al5 intact. Good blood return noted. Site clean \T\ dry. Gauge \T\ site: 20 G L Hand. Flushed with 10 mL NS. Patient maintains SpO2 saturation greater than 95% on room air. 02:33 Cy Roldan MD is Attending Physician. rt 02:57 Lissett Ogden, ILEANA is Primary Nurse. al5 03:18 Basic Metabolic Panel Sent. hw 03:18 CBC with Diff Sent. hw 03:18 LFT's Sent. hw 03:18 Troponin HS Sent. hw 03:18 EKG done, by ED staff, reviewed by Cy Roldan MD. hw 03:31 XRAY Chest (1 view) In Process Unspecified. EDMS 04:12 Notified ED physician of a critical lab result(s). blood sugar 537. 06:23 Primary Nurse role handed off by Lissett Ogden RN eb 07:03 Daryl Tavares MD is Hospitalizing Provider. rt 07:27 Elaine Vilchis, ILEANA is Primary Nurse. ll1 07:51 Patient admitted, IV remains in place. ll1 Administered Medications: 05:08 Drug: NS 0.9% IV 1000 ml IV at 1 bolus Per protocol; to be given as a bolus over 60 al5 minutes Route: IV; Rate: 1 bolus; Site: left hand; 07:51 Follow up: Response: No adverse reaction; IV Status: Completed infusion; IV Intake: ll1 1000ml 05:54 Drug: Insulin Regular Human IVP 10 units IVP once {Co-Signature: dd2 (LILIANA WOOD RN).} Route: IVP; Site: left hand; 07:51 Follow up: Response: No adverse reaction; Blood sugar is lowered ll1 Medication: 02:30 VIS not applicable for this client. al5 Intake: 07:51 IV: 1000ml; Total: 1000ml. ll1 Outcome: 07:04 Decision to Hospitalize by Provider. rt 07:51 Admitted to Tele ll1 07:51 Condition: stable 07:51 Instructed on the need for admit, 09:07 Patient left the ED. ll1 Signatures: Dispatcher [employer] EDMA Marilynn Vilchis RN RN kl Botello, Elizabeth eb Lewis, Lynsay, RN RN ll1 Cy Roldan MD MD rt Lissett Ogden RN RN al5 Woodall, Hailey hw DAVIS, DIANA RN dd2 Corrections: (The following items were deleted from the chart) 02:28 02:28 Allergies: No Known Allergies; al5 al5 07:51 07:00 Reassessment: Patient and/or family updated on plan of care and expected ll1 duration. Pain level reassessed. ll1
[2024-09-21] MEDS ORDERED: GLUCAGON 1 MG/VIAL IM PRN (11:28)
[2024-09-21] MEDS ORDERED: D10W 125 ML IV PRN (11:28)
[2024-09-21] MEDS: INSULIN REGULAR (HUMAN) 100 UNIT/ML SQ SCH (12:29)
[2024-09-21 13:16] VITALS: BMI 41.1
[2024-09-21] MEDS: METOPROLOL XL 25 MG TAB PO ONE (14:18)
[2024-09-21] MEDS: ENOXAPARIN 100 MG/ML SYR SQ SCH (14:19)
[2024-09-21] MEDS ORDERED: FLU (Fluarix Triv) TS24-25(6MOS UP)/PF 45 MCG/0.5 ML Syringe IM ONE ×2 (14:30)
[2024-09-21] MEDS ORDERED: METFORMIN HCL 500 MG TAB PO SCH (17:00)
[2024-09-21] MEDS ORDERED: ATORVASTATIN 40 MG TAB PO SCH (21:00)
[2024-09-21] MEDS: ATORVASTATIN 40 MG TAB PO SCH (22:04)
--- NOTE | 2024-09-21 22:36 | HP ---
Date of Admission: 09/21/2024 Chief Complaint: Chest pain. History Of Present Illness: This is a 68-year-old female patient who has multiple comorbidities including type 2 diabetes mellitus, sees her public relations professional Dr. Gonzales in [place]. She was on Ozempic, but she stopped taking it because it did not help her to lose her weight and she was on the maximum dose 2 mg every 8 weeks. She continues to take multiple other medication for diabetes and says about 2 weeks ago she fell down and injured her left knee, so she saw her orthopedic doctor yesterday and had intra-articular cortisone injection. Yesterday, she did not watch her diet as well. She had some baked potatoes, cake, etc., which obviously she should not be eating and some pasta. She woke up sometime during nighttime with complaints of chest pain and described as somebody sitting on her chest and symptoms did not improve. She decided to drive to emergency room. She reached to a gas station and she realized that she just did not feel good at all and did not feel comfortable driving, so she called ambulance and she was brought into emergency room via ambulance. She was given nitroglycerin sublingual tablets x2 and aspirin and this has resulted in resolution of her symptoms. After she was evaluated in the ER, I was contacted requesting admission to hospital. When I saw her in the emergency room, she was asymptomatic. Allergies: NO KNOWN ALLERGIES. Medications: Aspirin 81 mg daily, atorvastatin 40 mg daily, escitalopram 5 mg daily, Tresiba 52 units subcutaneous injection daily, NovoLog insulin at a meal time, metformin 1000 mg twice a day, montelukast 10 mg daily, pioglitazone 15 mg daily, and she takes some eyedrops and fluticasone nasal spray. Review of Systems: Cardiovascular: As mentioned above. All other systems reviewed are negative. Past Medical History: Significant for prior history of stroke, which was detected on routine MRI done at [facility] in November 2019, type 2 diabetes mellitus, which is uncontrolled, hypertension, hyperlipidemia, and colon cancer involving her sigmoid colon. Past Surgical History: Gastric band, cholecystectomy, partial colectomy, hysterectomy, shoulder surgery, which is her right shoulder surgery December 04, 2020. Family History: Father , had kidney cancer and rectal cancer. Mother , had cirrhosis of liver. Brother with Crohn disease. Sister with breast cancer and cervical cancer. Social History: Negative for smoking, alcohol use. Physical Examination: Vital signs: Temperature 97.4, pulse 73, respiratory rate 16, blood pressure 154/57, oxygen saturation 98%. General: Awake, alert, oriented, not in distress. HEENT: Head atraumatic, normocephalic. Conjunctivae nonerythematous. Sclerae white. Mouth, no thrush or edema noted. Ears/Nose, no mass, lesion, discharge noted. Neck: Supple. No JVD, lymph nodes, bruit, thyromegaly noted. Lungs: Bilateral good equal air entry. Clear to auscultation. No rhonchi. No rales. Heart: Normal heart sounds, no murmur or gallop. Abdomen: Soft, bowel sounds normal. No guarding, rigidity, tenderness, mass, hepatosplenomegaly, distention, or bruit noted. Extremities: No leg edema. No calf tenderness. Skin: No rash, ulcer, cellulitis. Lymphatics: No lymph node enlargement in neck, supraclavicular, infraclavicular region. Neuro: No focal neurological deficit. Chest: Unremarkable. External Genitalia: Deferred. Rectal: Deferred. Laboratory Data: WBC 10.8, hemoglobin 11.3, platelets 246, sodium 131, potassium 4, chloride 102, bicarb 22, BUN 30, creatinine 1.27, glucose 537 and after treatment in the emergency room, repeat glucose was 282. Liver function test unremarkable. Troponin 1st set was 51.5 and 2nd set was 611.9. Urinalysis negative. Chest x-ray, no acute intrathoracic changes. EKG normal sinus rhythm. No acute ST-T changes. Impression: 1. NSTEMI. 2. Hypertension. 3. Hyperlipidemia. 4. Iid-kzngpsh-uxqzsupmh diabetes mellitus, uncontrolled. 5. Colon cancer, sigmoid colon. 6. Depression. Plan: We will go ahead and admit the patient to hospital for further evaluation and management of this problem. Patient is appropriate for inpatient and is expected to spend two midnights in hospital. The patient received 2 doses of nitroglycerin and 1 dose of aspirin and this has resulted in resolution of her symptoms. Start patient on Lovenox 100 mg subcutaneous injection every 12 hours. We will monitor her troponin level and consult metal weather stripper. Continue aspirin 81 mg daily. Start her on Metoprolol 25 mg daily. For hyperlipidemia, we will continue her atorvastatin, but increase dose from 40 mg to 80 mg daily. For diabetes, we will continue her pioglitazone and metformin and long-acting insulin will be given starting tomorrow morning 30 units and we will put her on sliding scale insulin. For depression, she takes escitalopram, but continue that per order. Total time spent 75 minutes including review of last two office visit record including last one from July 16, 2024, review of last office lab results and this was June 2024. Her A1c was 7.2 and fasting glucose at that time was 127. Also review of emergency room visit record, communication with the ER physician and performing today's evaluation and management. I will see her tomorrow for followup. JASS/CORTEZ Voice ID: [id number]
[2024-09-21] MEDS: DOCUSATE NA 100 MG CAP PO ONE (22:49)
[2024-09-21] MEDS: ACETAMINOPHEN 500 MG TAB PO ONE (22:49)
[2024-09-22] MEDS: ASPIRIN EC 81 MG TAB PO SCH (08:52)
[2024-09-22] MEDS: PIOGLITAZONE 15 MG TAB PO SCH (08:52)
[2024-09-22] MEDS: METOPROLOL XL 25 MG TAB PO SCH (08:53)
[2024-09-22] MEDS: MONTELUKAST 10 MG TAB PO SCH (08:53)
[2024-09-22] MEDS: INSULIN GLARGINE 100 UNIT/ML SQ SCH (08:54)
[2024-09-22] MEDS: ESCITALOPRAM 20 MG TAB PO SCH (08:56)
--- NOTE | 2024-09-22 10:46 | PN ---
Date of Progress Note: 09/22/2024 Subjective: The patient was seen this morning for followup. No new complaints, problems reported by the patient this morning. Denies any chest pain. Objective: Vital Signs: Reviewed. HEENT: Unremarkable. Lungs: Clear to auscultation. Heart: Sounds normal. Abdomen: Soft, bowel sounds normal. No guarding, rigidity, tenderness, distention. Extremities: No leg edema. Labs: The patient's third troponin yesterday evening was 537.5. This morning, sodium 138, potassium 4, chloride 108, bicarb 25, BUN 29, creatinine 0.89, glucose 170. A1c pending. Triglyceride 164, t otal cholesterol 161, LDL 87, HDL 41. Impression: 1. Non-ST elevation myocardial infarction. 2. Type 2 diabetes mellitus, uncontrolled. 3. Hypertension. 4. Hyperlipidemia. Plan: We will go ahead and continue aspirin, Lovenox, metoprolol per order. Follow up with cardiolo gist. The patient probably will have cardiac cath tomorrow by sofa back upholsterer. I will keep her at n.p. o. after midnight in anticipation of that and I have communicated details with the patient regarding that plan. Depending on cardiac cath results and findings, intervention will be considered and all t hose different options discussed with the patient. If she gets a cardiac cath done through radial ar hoda approach, then I have advised her not to use her hand for 1 week to carry anything heavy or to p ull or push anything heavy and then suggested her not to get more than 8 ounce glass of water using t hat hand for 1 week. 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 I will see her tomorrow. Continue current diabetes management and statin therapy. JASS/MODL Voice ID: [id number] Report ID: [id number]
[2024-09-22 16:30] LABS: Specific Gravity 1.013 (1.005-1.030); Sqamous Epithelial <5 /HPF (None Seen); Urine Bacteria None Seen /HPF (<20); Urine Bilirubin NEGATIVE (Negative); Urine Blood Trace (Negative); Urine Clarity Clear (Clear); Urine Color Colorless (Yellow); Urine Culture Reflex Order NOT NEEDED; Urine Glucose NEGATIVE (Negative); Urine Ketones NEGATIVE (Negative); Urine Microscopic Reflex YN ORDER UMIC; Urine Mucus Slight /HPF (None Seen); Urine Nitrite NEGATIVE (Negative); Urine Protein TRACE (Negative); Urine RBC <5 /HPF (None Seen); Urine Urobilinogen Normal (Normal); Urine WBC <5 /HPF (<5)
[2024-09-23] MEDS: ESCITALOPRAM 20 MG TAB PO SCH (07:48)
[2024-09-23] MEDS: predniSONE 20 MG TAB PO SCH (09:19)
[2024-09-23] MEDS: INSULIN GLARGINE 100 UNIT/ML SQ SCH (09:19)
--- NOTE | 2024-09-23 10:34 | P.CNS ---
Date of Consult: 09/23/24 Chief Complaint: chest pain History of Present Illness: Patient with PMH of DM, HTN, HLD presented with chest pain started monday, pressure in nature, no radiation, no other cardiac symptoms. Allergies Fish Containing Products Allergy (Verified 09/23/24 06:43) Hives/Rash iodine Allergy (Verified 09/23/24 06:41) Anaphylaxis shellfish derived Allergy (Verified 09/23/24 06:41) Anaphylaxis Home medications list reviewed: Yes Home Medications: Insulin Aspart [Novolog Flexpen] 10 unit SQ DAILY AT SUPPER 03/31/17 Insulin Degludec [Tresiba Flextouch U-100] 52 unit SQ DAILY 03/31/17 Metformin HCl [Glucophage] 1,000 mg PO BID 03/31/17 Aspirin 81 mg PO DAILY 11/30/20 Atorvastatin Calcium [Lipitor] 40 mg PO BEDTIME 11/30/20 Pioglitazone [Actos] 15 mg PO DAILY 11/30/20 Montelukast [Singulair*] 10 mg PO DAILY 11/10/22 Escitalopram Oxalate [Lexapro] 5 mg PO DAILY 09/21/24 Meloxicam 15 mg PO DAILY 09/21/24 - Past Medical/Surgical History Diabetic: Yes -: DM 2 -: HTN -: HLD -: GERD -: Anxiety/Depression - Social History Smoking Status: Unknown if ever smoked Alcohol use: No CD- Drugs: No Caffeine use: Yes Place of Residence: Home Review of Systems 10-point ROS is otherwise unremarkable Physical Examination Temp Pulse Resp BP Pulse Ox 98 F 55 18 119/59 L 97 09/23/24 08:00 09/23/24 08:00 09/23/24 08:00 09/23/24 08:00 09/23/24 08:00 General: Alert, In no apparent distress HEENT: Atraumatic, PERRLA, Mucous membr. moist/pink, EOMI, Sclerae nonicteric Neck: Supple, 2+ carotid pulse no bruit, No LAD, Without JVD or thyroid abnormality Respiratory: Clear to auscultation bilaterally, Normal air movement Cardiovascular: Regular rate/rhythm, Normal S1 S2 Gastrointestinal: Normal bowel sounds, No tenderness Musculoskeletal: No tenderness Integumentary: No rashes Neurological: Normal gait, Normal speech, Normal tone, Normal affect Lymphatics: No axilla or inguinal lymphadenopathy - Problems (1) NSTEMI (non-ST elevated myocardial infarction) Current Visit: Yes Status: Acute Plan: patient enzymes trended up, she is chest pain free now, patient got iodine allergy NPO for coronary angiogram after midnight continue ASA 81 mg daily continue therpeutic lovenox get echo (2) HTN (hypertension) Current Visit: Yes Status: Acute Plan: continue Toprol XL 25 mg willi'y (3) HLD (hyperlipidemia) Current Visit: Yes Status: Acute Plan: continue lipitor 80 mg daily
--- NOTE | 2024-09-23 20:33 | PN ---
Date of Progress Note: 09/23/2024 Subjective: The patient was seen this morning for followup. No new complaints or problems reported by her. No chest pain overnight. Objective: Vital Signs: Reviewed. HEENT: Unremarkable. Lungs: Clear to auscultation. Heart: Sounds normal. Abdomen: Soft. Bowel sounds normal. No guarding, rigidity, tenderness, distention. Extremities: No leg edema. Impression: 1. Fig-GA-asowepcxk myocardial infarction. 2. Hypertension. 3. Hyperlipidemia. 4. Type 2 diabetes mellitus, uncontrolled. Plan: We will go ahead and continue to follow with data center manager. I did communicate with cardiologis t this morning. I had kept the patient n.p.o. after midnight in anticipation of cardiac cath procedu re to be done today, but data center manager will do the procedure tomorrow considering the patient's histor y of iodine allergy. Ip Litigation Paralegal has suggested to start the patient on prednisone 40 mg p.o. every 8 hours, and he will do this procedure tomorrow. We will continue the patient's insulin. This marioni norah, her long-acting insulin dose was increased from 30 units to 40 units. Continue sliding scale. I will see her tomorrow for followup. JASS/MODL Voice ID: [id number] Report ID: [id number]
[2024-09-23] MEDS: INSULIN GLARGINE 100 UNIT/ML SQ ONE (20:38)
[2024-09-24] MEDS: DIPHENHYDRAMINE 25 MG TAB/CAP PO SCH (06:01)
[2024-09-24] MEDS ORDERED: NA CHLORIDE 0.9% 500 ML ONE (07:34)
[2024-09-24] MEDS ORDERED: LIDOCAINE 1% 20 ML MDV ONE (08:12)
[2024-09-24] MEDS ORDERED: MIDAZOLAM HCL 2 MG/2 ML INJ ONE (08:13)
[2024-09-24] MEDS ORDERED: ATROPINE SULF 1 MG/10 ML SYR IV ONE (08:14)
[2024-09-24] MEDS ORDERED: HEPARIN 5000 UNIT/ML 1 ML VIAL ONE (08:14)
[2024-09-24] MEDS ORDERED: CLOPIDOGREL 75 MG TABLET ONE (08:14)
[2024-09-24] MEDS ORDERED: FENTANYL CITR 100 MCG/2 ML ONE (08:15)
[2024-09-24] MEDS ORDERED: TICAGRELOR 90 MG TABLET PO ONE (08:15)
[2024-09-24] MEDS ORDERED: HEPA 1000U/500MLS 2,000 UNIT/1,000 ML BAG IV ONE (08:16)
[2024-09-24] MEDS ORDERED: HEPARIN 10,000 UNIT/10 ML VIAL IV ONE (09:05)
[2024-09-24] MEDS ORDERED: METHYLPREDNISOLONE 125 MG INJ ONE (09:06)
[2024-09-24] MEDS ORDERED: DIPHENHYDRAMINE 50 MG/ML VIAL ONE (09:06)
--- NOTE | 2024-09-24 11:33 | P.PN ---
Subjective Date of Service: 09/24/24 Chief Complaint: chest pain Subjective: No new changes, No C/O voiced, Tolerating diet, Ambulating, Improving Review of Systems 10-point ROS is otherwise unremarkable Physical Examination - Vital Signs Temperature: 97.1 F Blood Pressure: 120/39 Pulse: 61 Respirations: 17 Pulse Ox (%): 97 - Physical Exam General: Alert, In no apparent distress HEENT: Atraumatic, PERRLA, EOMI Neck: Supple, JVD not distended Respiratory: Clear to auscultation bilaterally, Normal air movement Cardiovascular: Regular rate/rhythm, Normal S1 S2 Gastrointestinal: Normal bowel sounds, No tenderness Musculoskeletal: No tenderness Integumentary: No rashes Neurological: Normal speech, Normal tone, Normal affect Lymphatics: No axilla or inguinal lymphadenopathy - Studies Medications List Reviewed: Yes Assessment And Plan - Current Problems (Diagnosis) (1) NSTEMI (non-ST elevated myocardial infarction) Current Visit: Yes Status: Acute Plan: coronary angiogram done and shows mild to moderate LAD/RCA disease, no intervention needed. continue ASA 81 mg daily start Plavix 75 mg daily continue lipitor 80 mg daily (2) HTN (hypertension) Current Visit: Yes Status: Acute Plan: continue Toprol XL 25 mg willi'y (3) HLD (hyperlipidemia) Current Visit: Yes Status: Acute Plan: continue lipitor 80 mg daily
[2024-09-24 12:17] VITALS: O2SAT 97
--- NOTE | 2024-09-24 12:51 | EKG ---
Test Date: 2024-09-21 Test Time: 03:05:57 Student Records Coordinator: JONNY MEASUREMENT RESULTS: Intervals: Rate: 72 AL: 150 QRSD: 82 QT: 396 QTc: 433 [place]: P: 45 AL: 150 QRS: 27 T: 12 INTERPRETIVE STATEMENTS: Sinus rhythm with premature atrial complexes Otherwise normal ECG Compared to ECG 11/10/2022 11:18:24 Atrial premature complex(es) now present Electronically Signed On 09-24-24 12:45:17 MEDICARE SPECIALIST by Hollis Sepulveda
[2024-09-24 12:59] VITALS: BP 149/61; TEMP 98.2
--- NOTE | 2024-09-24 19:14 | DS ---
Date of Discharge: 09/24/2024 Disposition: Discharged to go home. Physical Examination: HEENT: Unremarkable. Lungs: Clear to auscultation. Heart: Sounds normal. Abdomen: Soft. Bowel sounds normal. No guarding, rigidity, tenderness, distention. Extremities: No leg edema. Laboratory Data: Upon admission , . Final Diagnoses: 1. Non-STEMI. 2. Coronary artery disease. 3. . 4. . Hospital Course: This is a 68-year-old pleasant female patient, who came into emergency room with co mplaints of chest pain and after she was evaluated, she was admitted to the hospital. The patient wa s admitted to the hospital with non-STEMI over the weekend. She was started on aspirin, Lovenox, and she remained asymptomatic after her admission to the hospital. Cardiology consultation was damari juárez and Dr. Sepulveda saw her from Cardiology yesterday and because of the patient's allergy to shrimp and iodine, he suggested prednisone 40 mg every 8 hours for total of 3 doses, which was started yesterda y morning and after 3 doses of prednisone, today he took the patient to cardiac metallurgical laboratory assistant where it sejal wed coronary artery disease, but no evidence of any significant stenotic lesion to require any stent placement, so medical management was suggested by him and considering the patient came in with non-ST BRAXTON, he suggested to start the patient on clopidogrel 75 mg daily and she was taking atorvastatin 40 mg at home prior to this admission and I have suggested her to increase it to 80 mg daily. The patie nt also wanted to increase the dose of her anxiety medication as she is having more trouble lately, s o escitalopram was increased from 5 mg daily to 10 mg daily. She is interested in taking Mounjaro an d I have instructed her to start taking low dose 2.5 mg once a week, and I have sent that prescriptio n for her and I instructed her that when she comes to see me next week to office for followup, she sh ould bring that injection with her and have my nurse teach her how to use this injection. Her hemogl obin A1c was 9 indicating poor control of diabetes. Importance of controlling diabetes to reduce elzbieta g-term cardiovascular complication discussed with her. She was also instructed not to use her hand f or 1 week and not to pull or push anything heavy with her hand and not to carry anything more than 8- ounce glass of water for 1 week. 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 Discharge Medications And Instructions: Continue all prior home medication except following changes: 1. Change atorvastatin 40 mg take 2 tablets daily until you run out of current supply and change to 8 0 mg 1 tablet daily. 2. Start Mounjaro 2.5 mg subcutaneous injection once a week. 3. Change escitalopram 5 mg take 2 tablets daily until you run out of current supply and then change to 10 mg take 1 tablet daily. 4. Stop metformin. 5. Make sure to take aspirin 81 mg by mouth daily. 6. Start clopidogrel 75 mg by mouth daily. 7. Follow up at office next week. 8. Follow up with hand tufter in 2 weeks. Total time spent today 45 minutes. JASS/MODL Voice ID: [id number] Report ID: [id number]
--- NOTE | 2024-09-24 20:09 | OP ---
Date of Procedure: 09/24/2024 Surgeon: Hollis Sepulveda Procedure Performed: Selective coronary angiogram. Indication For Procedure: Unstable angina. Crx-CG-jbnvtkflh AL. Complications: None. Estimated Blood Loss: Less than 50 cc. Access: Right radial, closed by TR band. Sedation Time: 20 minutes with 1 of Versed and 50 of fentanyl. Description Of Procedure: After risks, benefits, and alternatives were explained to the patient, pat ient agreed to proceed with procedure and signed informed consent. The patient was brought back to [facility] microbiology lab analyst, prepped and draped in sterile fashion. Time-out was performed. Sedation was administer ed. Next, right radial access was obtained using ultrasound-guided micropuncture technique. [place] 4 catheter was advanced over a J-wire to the aortic root. Selective angiogram was done using same cat heter. At the end of procedure, catheter was removed over a J-wire. Sheath was removed. TR band wa s applied. Hemostasis was achieved. The patient was moved back to recovery in stable condition. Findings: 1. Left Main: Normal. 2. LAD: Diffuse mild luminal irregularities with mid 20% to 30% disease, then mild luminal regularit ies. 3. Left Circ: Mild luminal irregularities. 4. RCA: Dominant, mild luminal irregularities with mid to distal diffuse 30% to 40% disease, then mi ld luminal regularities. Assessment/plan: Mild mid left anterior descending disease with mild to moderate mid to distal right coronary artery disease. Plan is to continue medical management. LISA/CORTEZ Voice ID: [id number] Report ID: [id number]
== END 2024-09-24 14:25 | disposition home or self-care (01) | DRG 281 ==
LOC: ER 02:19 → ERHOLD 07:06 → 4TH 08:33 → OBSVTOIN 13:18
PROVIDERS: ADMIT Internal Medicine; ATTEND Internal Medicine
PROC: B2111ZZ Fluoroscopy of Multiple Coronary Arteries using Low Osmolar Contrast (ICD-10-PCS; principal; 2024-09-24)
PROC: 4A023N7 Measurement of Cardiac Sampling and Pressure, Left Heart, Percutaneous Approach (ICD-10-PCS; 2024-09-24)
DX: I21.4 Non-ST elevation (NSTEMI) myocardial infarction (principal); C18.7 Malignant neoplasm of sigmoid colon; E11.65 Type 2 diabetes mellitus with hyperglycemia; E78.5 Hyperlipidemia, unspecified; F32.A Depression, unspecified; I10 Essential (primary) hypertension; K21.9 Gastro-esophageal reflux disease without esophagitis; I25.10 Atherosclerotic heart disease of native coronary artery without angina pectoris; Z79.4 Long term (current) use of insulin; Z79.84 Long term (current) use of oral hypoglycemic drugs; Z79.82 Long term (current) use of aspirin; Z98.84 Bariatric surgery status; Z90.49 Acquired absence of other specified parts of digestive tract; Z86.73 Personal history of transient ischemic attack (TIA), and cerebral infarction without residual deficits; Z91.013 Allergy to seafood; Z79.899 Other long term (current) drug therapy; Z90.710 Acquired absence of both cervix and uterus
CPT/HCPCS: 36415; 71045; 76937; 80048; 80061; 80076; 81001; 82947; 83036; 84484; 85025; 87086; 87088; 93005; 93454; 96361; 96374; 99152; 99153; 99285; C1893; G0378; J0461; J1200; J1644; J1650; J2003; J2250; J2919; J3010; J7030; J7040; J7512; Q9966

== ENCOUNTER 2024-12-06 21:31 | Emergency (ER) | payer OTHER, BC ==
[2024-12-06 22:29] LABS: Specific Gravity 1.017 (1.005-1.030); Sqamous Epithelial <5 /HPF (None Seen); Urine Bacteria <20 /HPF (<20); Urine Bilirubin NEGATIVE (Negative); Urine Blood 2+ (Negative); Urine Clarity Extremely Turbid (Clear); Urine Color Light-Yellow (Yellow); Urine Crystals Unidentified Few /HPF (None Seen); Urine Culture Reflex Order REFLEXED; Urine Glucose NEGATIVE (Negative); Urine Ketones NEGATIVE (Negative); Urine Microscopic Reflex YN ORDER UMIC; Urine Mucus Slight /HPF (None Seen); Urine Nitrite NEGATIVE (Negative); Urine Protein TRACE (Negative); Urine RBC <5 /HPF (None Seen); Urine Urobilinogen Normal (Normal); Urine WBC >50 /HPF (<5); Urine WBC Clump Few /HPF (None Seen)
[2024-12-06] MEDS ORDERED: MORPHINE 2 MG/ML SYR ONE (22:36)
[2024-12-06] MEDS ORDERED: ONDANSETRON 4 MG/2 ML VIAL ONE (22:36)
[2024-12-06] MEDS ORDERED: CEFTRIAXONE 1000 MG/VIAL ONE (22:36)
[2024-12-06] MEDS ORDERED: PHENAZOPYRIDINE 100MG TAB PO ONE (22:37)
[2024-12-06] MEDS ORDERED: NA CHLORIDE 0.9% 50 ML ONE (22:37)
[2024-12-06 22:51] LABS: Absolute Basophils 0.1 K/uL (0-0.5); Absolute Eosinophils 0.4 K/uL (0-0.5); Absolute Lymphocytes (CBC) 2.1 K/uL (0.7-4.9); Absolute Monocytes 1.1 K/uL (0.1-1.3); Absolute Neutrophil 6.9 K/uL (1.8-8.0); Eosinophils % 3.6 % (0-4.4); Hematocrit 35.3 % (36.0-45.0); Hemoglobin 12.3 g/dL (12.0-15.0); MCH 32.5 pg (27.0-35.0); MCHC 34.8 g/dL (32.0-36.0); MCV 93.3 fL (80-100); MPV 9.9 fL (7.6-11.3); Monocytes % 10.7 % (3.3-12.3); Neutrophils % 64.7 % (41.7-73.7); Nucleated Red Blood Cells % 0.1 % (0-0); Platelets 223 thou/uL (152-406); RBC Red Blood Cell Count 3.78 M/uL (3.86-4.86)
[2024-12-06 22:59] LABS: Albumin 3.5 g/dL (3.4-5.0); Albumin/Globulin Ratio 0.8 (1.1-1.8); Anion Gap 8.8 mEq/L (5.0-15.0); Bilirubin Total 0.6 mg/dL (0.2-1.0); Globulin 4.5 g/dL (2.3-3.5)
[2024-12-06 23:01] LABS: Potassium 4.8 mEq/L (3.5-5.1)
--- NOTE | 2024-12-06 23:29 | ER ---
Nurse's Notes [facility] Name: Zonia Butcher Age: 69 yrs Sex: Female : 1955 Arrival Date: 12/06/2024 Time: 21:31 Bed 19 Private MD: Diagnosis: UTI/ Urinary tract infection, site not specified Presentation: 12/06 22:01 Chief complaint: Patient states: PAIN, BURNING AND PRESSURE WITH URINATION THAT BEGAN dd2 ABOUT 2 HOURS SENIOR ADMINISTRATIVE ASSISTANT. Coronavirus screen: At this time, the client does not indicate any symptoms associated with coronavirus-19. Ebola Screen: No symptoms or risks identified at this time. Initial Sepsis Screen: Does the patient meet any 2 criteria? No. Patient's initial sepsis screen is negative. Does the patient have a suspected source of infection? No. Patient's initial sepsis screen is negative. Risk Assessment: Do you want to hurt yourself or someone else? Patient reports no desire to harm self or others. Onset of symptoms was December 06, 2024. 22:01 Method Of Arrival: Ambulatory dd2 22:01 Acuity: SRINIVASAN 3 dd2 Triage Assessment: 22:07 General: Appears in no apparent distress. uncomfortable, Behavior is cooperative, dd2 appropriate for age. Pain: Complains of pain in WITH URINATION Pain currently is 9 out of 10 on a pain scale. : Reports burning with urination, pain with urination, urgency. Historical: - Allergies: 22:07 Iodine; dd2 22:07 SHELLFISH; dd2 - PMHx: 22:07 diabetes mellitus; COLON CA (diabetes mellitus ); BRAIN TUMOR (diabetes mellitus ); CVA dd2 (diabetes mellitus ); Myocardial infarction; - PSHx: 22:07 HYSTERECTOMY; dd2 - Immunization history:: Adult Immunizations up to date. - Infectious Disease History:: Denies. - Social history:: Smoking status: Patient denies any tobacco usage or history of. Screenin:40 [facility] ED Fall Risk Assessment (Adult) History of falling in the last 3 months, rg5 including since admission No falls in past 3 months (0 pts) Confusion or Disorientation No (0 pts) Intoxicated or Sedated No (0 pts) Impaired Gait No (0 pts) Mobility Assist Device Used No (0 pt) Altered Elimination No (0 pt) Score/Fall Risk Level 0 - 2 = Low Risk Oriented to surroundings, Maintained a safe environment. Abuse screen: Denies threats or abuse. Nutritional screening: No deficits noted. Tuberculosis screening: No symptoms or risk factors identified. Assessment: 22:40 General: Appears in no apparent distress. Behavior is calm, cooperative, appropriate rg5 for age. Pain: Denies pain. Neuro: Level of Consciousness is awake, alert, obeys commands, Oriented to person, place, time, situation. Cardiovascular: Denies chest pain, Patient's skin is warm and dry. Respiratory: Airway is patent Trachea midline. GI: No signs and/or symptoms were reported involving the gastrointestinal system. : Reports burning with urination, cramping, urinary frequency. Vital Signs: 22:01 BP 143 / 94; Pulse 78; Resp 16; Temp 98.2(O); Pulse Ox 99% on R/A; Weight 108.86 kg; dd2 Height 5 ft. 4 in. ; Pain 9/10; 23:00 BP 138 / 88; Pulse 77; Resp 18; Pulse Ox 99% on R/A; Pain 0/10; rg5 22:01 Body Mass Index 41.20 (108.86 kg, 162.56 cm) dd2 22:01 Pain Scale: Adult dd2 23:00 Pain Scale: Adult rg5 ED Course: 21:39 Patient arrived in ED. gm2 21:42 Homero Miramontes FNP-C is PHCP. dr5 21:42 Golden Mcarthur DO is Attending Physician. dr5 22:07 Triage completed. dd2 22:07 Arm band placed on right wrist. dd2 22:17 Santosh Tee, RN is Primary Nurse. rg5 22:40 Patient has correct armband on for positive identification. Bed in low position. Call rg5 light in reach. Door closed. Noise minimized. 22:40 No provider procedures requiring assistance completed. Inserted saline lock: 22 gauge rg5 in left forearm, using aseptic technique. Blood collected. Flushed with 10 mL NS. 23:45 Provided Education on: post er care. rg5 23:45 IV discontinued, bleeding controlled, No redness/swelling at site. Pressure dressing rg5 applied. Administered Medications: 22:50 Drug: Phenazopyridine PO 100 mg PO once Route: PO; rg5 23:41 Follow up: Response: No adverse reaction rg5 22:50 Drug: Rocephin IV 1 grams IV at per protocol once; Given slow IV push per pharmacy rg5 instructions Route: IV; Rate: per protocol; Site: right forearm; 23:41 Follow up: IV Status: Completed infusion; IV Intake: 50ml rg5 23:04 Not Given (Patient Refused): morphineor iv 2 mg IVP once over 4 mins rg5 23:04 Not Given (Patient Refused): ondansetron 4 mg IVP once; over 2 minutes rg5 Medication: 22:40 VIS not applicable for this client. rg5 Intake: 23:41 IV: 50ml; Total: 50ml. rg5 Outcome: 23:29 Discharge ordered by MD. dr5 23:45 Discharged to home ambulatory, rg5 23:45 Condition: stable 23:45 Discharge instructions given to patient, Instructed on discharge instructions, follow up and referral plans. Demonstrated understanding of instructions, follow-up care, Prescriptions given X 1, 23:46 Patient left the ED. rg5 Addendum: 12/09/2024 07:55 Addendum: Culture Results: Positive urine culture. Bacteria is resistant to, has i w intermediate sensitivity, or is not tested against prescribed antibiotics. Report given to GEOVANNY for further evaluation and then to rn ortho for follow up with patient. Signatures: Barbara Brumfield RN RN iw Mitchell, Ginger 2 Santosh Tee RN RN rg5 LILIANA WOOD RN RN dd2 Homero Miramontes, SERVICE TRAINER-C SERVICE TRAINER-Cdr5
--- NOTE | 2024-12-06 23:29 | EDPHYS ---
Physician Documentation [facility] Name: Zonia Butcher Age: 69 yrs Sex: Female : 1955 Arrival Date: 12/06/2024 Time: 21:31 Bed 19 Private MD: ED Physician Golden Mcarthur HPI: 12/07 01:39 This 69 yrs old Female presents to ER via Ambulatory with complaints of Pain dr5 With Urination, Urinary Frequency. 01:39 Onset: The symptoms/episode began/occurred 2 hour(s) ago. Patient is a 69-year-old dr5 female with history of diabetes, colon cancer, brain tumor, CVA coming in with 2 hours of dysuria and urinary frequency. Patient reports that she has taken Macrobid in the past that has helped. Patient denies fever, back pain, hematuria, nausea, vomiting, diarrhea.. Historical: - Allergies: 12/06 22:07 Iodine; dd2 22:07 SHELLFISH; dd2 - PMHx: 22:07 diabetes mellitus; COLON CA (diabetes mellitus ); BRAIN TUMOR (diabetes mellitus ); CVA dd2 (diabetes mellitus ); Myocardial infarction; - PSHx: 22:07 HYSTERECTOMY; dd2 - Immunization history:: Adult Immunizations up to date. - Infectious Disease History:: Denies. - Social history:: Smoking status: Patient denies any tobacco usage or history of. ROS: 12/07 01:39 Constitutional: as per hpi dr5 Exam: 01:39 Constitutional: This is a well developed, well nourished patient who is awake, alert, dr5 and in no acute distress. Head/Face: Normocephalic, atraumatic. Eyes: Pupils equal round and reactive to light, extra-ocular motions intact. Lids and lashes normal. Conjunctiva and sclera are non-icteric and not injected. Cornea within normal limits. Periorbital areas with no swelling, redness, or edema. Chest/axilla: Normal chest wall appearance and motion. Nontender with no deformity. No lesions are appreciated. Cardiovascular: Regular rate and rhythm with a normal S1 and S2. Normal PMI, no JVD. No pulse deficits. Respiratory: Lungs have equal breath sounds bilaterally, clear to auscultation. No rales, rhonchi or wheezes noted. No increased work of breathing, no retractions or nasal flaring. Abdomen/GI: Soft, non-tender, non-distended Back: No spinal tenderness. No costovertebral tenderness. Full range of motion. Skin: Warm, dry with normal turgor. Normal color with no rashes, no lesions, and no evidence of cellulitis. MS/ Extremity: Pulses equal, no cyanosis. Neurovascular intact. Full, normal range of motion. Neuro: Awake and alert, GCS 15, oriented to person, place, time, and situation. Cranial nerves II-XII grossly intact. Motor strength 5/5 in all extremities. Sensory grossly intact. Cerebellar exam normal. Normal gait. Vital Signs: 12/06 22:01 BP 143 / 94; Pulse 78; Resp 16; Temp 98.2(O); Pulse Ox 99% on R/A; Weight 108.86 kg; dd2 Height 5 ft. 4 in. ; Pain 9/10; 23:00 BP 138 / 88; Pulse 77; Resp 18; Pulse Ox 99% on R/A; Pain 0/10; rg5 22:01 Body Mass Index 41.20 (108.86 kg, 162.56 cm) dd2 22:01 Pain Scale: Adult dd2 23:00 Pain Scale: Adult rg5 MDM: 22:04 Medical Screening Exam initiated dr5 12/07 01:39 Differential diagnosis: viral Infection, bacterial infection, UTI. Data reviewed: vital dr5 signs, nurses notes, lab test result(s). I considered the following discharge prescriptions or medication management in the emergency department Medications were administered in the Emergency Department. See MAR. Care significantly affected by the following chronic conditions: Diabetes. Care significantly affected by the following Social Determinants of Health: Poor access to healthcare and/or lack of insurance, Poor access to transportation, Problems related to employment. Counseling: I had a detailed discussion with the patient and/or guardian regarding the historical points, exam findings, and any diagnostic results supporting the discharge/admit diagnosis, the presence of at least one elevated blood pressure reading (>120/80) during this emergency department visit, lab results, the need for outpatient follow up, for definitive care, a family practitioner, to return to the emergency department if symptoms worsen or persist or if there are any questions or concerns that arise at home. ED course: First dose of Rocephin given in ER due to pharmacies being closed. Will prescribe Macrobid per patient's request for urinary tract infection. Will have patient follow-up with Dr. Tavares this week. All questions answered. Strict ER precautions given.. 12/06 21:42 Order name: Urinalysis w/ reflexes; Complete Time: 22:30 dr5 12/06 21:42 Order name: CBC with Diff; Complete Time: 22:59 dr5 12/06 21:42 Order name: CMP; Complete Time: 23:01 dr5 12/06 22:33 Order name: Urine Culture EDMS Administered Medications: 12/06 22:50 Drug: Phenazopyridine PO 100 mg PO once Route: PO; rg5 23:41 Follow up: Response: No adverse reaction rg5 22:50 Drug: Rocephin IV 1 grams IV at per protocol once; Given slow IV push per pharmacy rg5 instructions Route: IV; Rate: per protocol; Site: right forearm; 23:41 Follow up: IV Status: Completed infusion; IV Intake: 50ml rg5 23:04 Not Given (Patient Refused): morphineor iv 2 mg IVP once over 4 mins rg5 23:04 Not Given (Patient Refused): ondansetron 4 mg IVP once; over 2 minutes rg5 Disposition: 12/07 02:36 I was immediately available on-site in the Emergency Department for consultation in the ms3 care of the patient. Disposition Summary: 12/06/24 23:29 Discharge Ordered Notes: Location: Home dr5 Condition: Stable dr5 Diagnosis - UTI/ Urinary tract infection, site not specified dr5 Followup: dr5 - With: Emergency Department - When: As needed - Reason: Worsening of condition Followup: dr5 - With: Private Physician - When: 1 - 2 days - Reason: Recheck today's complaints, Continuance of care, Re-evaluation by your physician Discharge Instructions: - Discharge Summary Sheet dr5 - Urinary Tract Infection, Adult, [id number] dr5 Forms: - Medication Reconciliation Form dr5 - Antibiotic Education dr5 - Patient Portal Instructions dr5 - Leadership Thank You Letter dr5 Prescriptions: - Macrobid 100 mg Oral Capsule - take 1 capsule ORAL route every 12 hours for 7 days; 14 capsule; Refills: 0, dr5 Product Selection Permitted Signatures: Dispatcher [employer] EDNJ Golden Mcarthur DO DO ms3 Santosh Tee RN RN rg5 LILIANA WOOD RN RN dd2 Homero Miramontes, FINAL INSPECTOR [employer]-C FINAL INSPECTOR [employer]-Cdr5
[2024-12-07 02:07] VITALS: TEMP 98.2; O2SAT 99
[2024-12-07 02:08] VITALS: BP 138/88
== END 2024-12-06 23:46 | disposition home or self-care (01) ==
LOC: ER 21:31
DX: N39.0 Urinary tract infection, site not specified (principal)
CPT/HCPCS: 96365; 87088; 85025; 81001; 87086; 36415; 87077; 87186; 80053; 99284; J2405; J0696; J2270